=== PATIENT | female | born 1980 | race Asian ===

== ENCOUNTER 2016-12-23 12:27 | Inpatient (IN) | payer OTHER ==
[2016-12-23] MEDS ORDERED: IV START KIT ONE (19:16)
[2016-12-23] MEDS ORDERED: OXYTOCIN 10 UNITS/ML VIAL ONE (19:16)
[2016-12-23] MEDS ORDERED: LACTATED RINGERS 1,000 ML ONE (19:16)
[2016-12-23] MEDS ORDERED: LIDOCAINE Viscous 2% 15 ML UDCUP ONE (19:17)
[2016-12-23] MEDS ORDERED: PUMP TUBING ONE (19:17)
[2016-12-23] MEDS ORDERED: MINERAL OIL 25 ML BOT ONE (19:17)
[2016-12-23] MEDS ORDERED: LIDOCAINE 1% (PRES FREE) 30 ML VIAL ONE (19:17)
[2016-12-23] MEDS ORDERED: OXYTOCIN IN LR 500 ML IV ONE (19:17)
[2016-12-23 19:39] VITALS: BMI 31.4
[2016-12-23] MEDS ORDERED: MISOPROSTOL 25 MCG TABLET ONE (20:24)
[2016-12-23] MEDS: MISOPROSTOL 25 MCG TABLET SL SCH (20:30)
[2016-12-23 20:42] LABS: HEMATOCRIT 35.7 % (37.0-47.0); HEMOGLOBIN 12.4 gm/l (12.0-16.0); MEAN CELL VOLUME 88.1 fl (81.0-99.0); MEAN CORPUSCULAR HEMOGLOBIN 30.6 pg (27.0-31.0); MEAN CORPUSCULAR HGB CONC 34.7 g/dl (33.0-37.0); RED CELL DISTRIBUTION WIDTH 12.6 % (11.5-14.5)
[2016-12-24] MEDS: MISOPROSTOL 25 MCG TABLET SL SCH (00:30)
--- NOTE | 2016-12-24 09:46 | PCMAN ---
OB Admission Note - History : 3 Term: 2 : 0 Abortions (S&E): 0 Livin EDC:: 12/16/16 Gestational Age (weeks): 41 Days (#/7): 0 Admit Cervical Dilation:: 2 Admit Cervical Effacement (%):: 40 Admit Station:: -3 Admit Presentaton:: vertex Membrane Status: Intact Contractions: Yes Contraction Frequency:: 3-10MIN Heart Rate:: 130 (moderate variability/accels present/decels absent) Status:: FHR Cat 1 EFW:: 8# Summary of Course:: Onset of care at 13 weeks x 20 visits. OBIE at 37 weeks from [facility] [place]. complicated by positive Hep B status and stress related to 's diagnosis and treatment for brain cancer. also complicated by iron deficiency anemia and was supplementing. Some gaps in care related to 's illness. Presents to [facility] for IOL due to oligohydraminos at 41w0d. BIBI 5.7 cm on 12/23/16 with reactive NST. SUSU based on sure LMP c/w normal Anatomy U/S. Supported by corporate events director. - Labs Blood Type: A (+) positive Hct/Hgb:: 12.0 Rubella Status: Immune GBS Status: Negative Abnormal Labs: HBsAG Positive, Other - Review of Systems Neg ROS - Physical Exam General: Afebrile, No Acute Distress Psych/Mental Status: Mood/Affect Appropriate, Judgment/Insight Intact Neurological: Grossly Intact, Alert, Oriented x 4 Lungs: Clear to Auscultation Bilaterally Cardiovascular: Regular Rate and Rhythm Genitourinary: Normal Female Genitalia, No Edema Extremities: Full ROM, No Edema - Problems (1) Oligohydramnios Status: Acute Code: O41.00X0 Assessment/Plan: 35 year old at 41w0d IOL for oligohydraminos FHR Cat 1 Cervical ripening; not in labor Hep B pos Family stress; has brain cancer Hx of PP hemorrhage; needs AMTSL Plan: Discussion: Discussed process of IOL. Discussed cervical ripening options including risks and benefits. Patient agrees with misoprostol SL. Meds: 25 mcg misoprostol SL Saline lock Monitoring: continuous Reassess SVE after 2-3 doses of misoprostol or with regular painful contractions. Closely monitor maternal and status.
[2016-12-24] MEDS ORDERED: OXYTOCIN IN LR 500 ML IV PRN ×2 (10:10→15:43)
[2016-12-24] MEDS ORDERED: MISOPROSTOL 25 MCG TABLET SL ONE (10:36)
[2016-12-24] MEDS ORDERED: LACTATED RINGERS 1,000 ML IV ONE (10:39)
--- NOTE | 2016-12-24 13:28 | PDOC36 ---
Provider Note Subject: Labor Progress Note Note: S: Patient resting in bed. Accompanied at bedside by scutcher tender. Ate breakfast and was able to sleep on and off last night. Contractions not painful. O: EFM: 120/moderate variability/accels present/decels absent [employer]: q 4 mins, 60-90 mins, mild to palpation SVE: 2-3/50/-2/LOT VS: BP 111/74, HR 75, T 36.1C [place]: LOT/LOP Note: Patient received two doses of SL misoprostol. Third dose held due to RN concerns about hyperstimulation. Strip reviewed with RN and hyperstim not noted nor were contractions ever noted to be moderate nor painful per patient. A: IOL for oligohydraminos Cervical ripening with misoprostol FHR Cat 1 Hep B pos Plan: Discussed with patient that hyperstim not noted on chart review and due to minimal change with 25 mcg SL, will try 50 mcg SL misoprostol. Discussed alternative of starting pitocin, but explained that cervical ripening was still needed. Patient agrees with trying another dose of misoprostol. Will reevaluate cervix in 4 hours or PRN.
[2016-12-24] MEDS: LACTATED RINGERS 1,000 ML IV SCH ×2 (15:04→21:55)
[2016-12-24] MEDS ORDERED: LACTATED RINGERS 1,000 ML IV SCH (15:45)
[2016-12-24] MEDS ORDERED: OXYTOCIN IN LR 500 ML IV ONE (21:51)
[2016-12-24] MEDS ORDERED: METHYLERGONOVINE MALEATE 0.2 MG/ML 1ML AMP ONE (22:11)
[2016-12-24] MEDS ORDERED: METHYLERGONOVINE MALEATE 0.2 MG/ML 1ML AMP IM ONE (22:15)
[2016-12-24] MEDS ORDERED: LIDOCAINE 1% 2 ML VIAL SUB-Q ONE (22:54)
[2016-12-24] MEDS ORDERED: CALCIUM CARBONATE 500 MG TAB.CHEW PO PRN (23:04)
[2016-12-24] MEDS ORDERED: HYDROCODONE/ACETAMINOPHEN 5/325MG TABLET PO PRN (23:04)
[2016-12-24] MEDS ORDERED: MAGNESIUM HYDROXIDE 30 ML UDCUP PO PRN (23:04)
[2016-12-24] MEDS ORDERED: LACTATED RINGERS 1,000 ML IV PRN (23:04)
[2016-12-24] MEDS ORDERED: LANOLIN 50 APPLIC/7G TUBE TP PRN (23:04)
[2016-12-24] MEDS ORDERED: DOCUSATE SODIUM 100 MG CAPSULE PO PRN (23:04)
[2016-12-24] MEDS ORDERED: BENZOCAINE/MENTHOL 60 APPLIC/BOT TP PRN (23:04)
[2016-12-24] MEDS ORDERED: ACETAMINOPHEN 325 MG TABLET PO PRN (23:04)
[2016-12-25] MEDS: IBUPROFEN 800 MG TABLET PO SCH ×4 (00:04→20:34)
--- NOTE | 2016-12-25 04:58 | PCMDEL ---
Delivery Note - Labor 1st stage (hr/min):: 2h48m 2nd stage (hr/min):: 0h11m 3rd stage (hr/min):: 0h10m Total (hr/min):: 3h9m Pushed (hr/min):: 0h15m - Delivery Delivery (Date): 12/24/16 Delivery (Time): 21:29 Gender: Male Weight: 8 lb 9 oz Length: 1 ft 8.5 in Presentation: Cephalic Position: OA Umbilical Cord: 3 Vessel Delayed Cord Clamping:: > 3 min 1 Minute Total: 9 5 Minute Total: 9 Placenta:: winston, intact, spontaneous, 3vc EBL:: 500ml Perineum:: 2nd perineal laceration Suture:: 3-0 vicryl Anesthesia/Meds:: none Length ROM:: 1 min Comments:: Cervical ripening with miso x 3, low dose pitocin, she then progressed to active labor. Primarily FHT cat. I throughout labor, with occasional Cat. II d/ t occasional decels. She started feeling the urge to push while sitting on then ball and then moved to hands and knees. She pushed effectively to achieve of vigorous male infant. OA to ARNULFO with compound hand, en caul around head, easy delivery of the shoulders and body. Baby initially placed on maternal back to assessment and drying, for spontaneous cry. Apgars 9/9. Mom turned over onto back and baby was placed on maternal abdomen for skin to skin and . AMTSL with IV pitocin. Spontaneous delivery of intact placenta, winston, 3vc, trailing membranes removed with ring forceps. Fundus firm midline at U. 2nd perineal laceration noted and repaired to approximation and hemostasis. Mild continued bleeding noted, fundus firm/midline/at U, lower uterine segment swept for moderate clots and noted atony of lower uterine segment. IM methergine given for good tone of the uterus and decrease in bleeding. Hemostasis achieved, EBL 500ml. Mom and baby stable, baby to breast in 30min.
[2016-12-25 06:41] LABS: HEMATOCRIT 29.9 % (37.0-47.0); HEMOGLOBIN 10.4 gm/l (12.0-16.0)
--- NOTE | 2016-12-25 21:29 | PDOC44 ---
- Subjective Day: 1 (routine) Up ad carlos without issue to void, without issue, pain controlled with PO medication, bleeding decreasing, desires to go home tomorrow. Reports Flatus, Reports Pain Tolerable, Reports , Reports Lochia Light, Reports Tolerating Regular Diet - Objective Temp Pulse Resp BP Pulse Ox 98.2 F 73 14 99/55 12/25/16 20:24 12/25/16 20:24 12/25/16 20:24 12/25/16 20:24 Lab Results 12/25/16 06:15 Hgb 10.4 L D Hct 29.9 L Current Medications Generic Name Dose Route Start Last Admin Trade Name Freq PRN Reason Stop Dose Admin Acetaminophen 325 - 650 mg 12/24/16 23:04 Tylenol PO Q4H PRN Pain (Mild) Acetaminophen/Hydrocodone Bitart 1 - 2 tab 12/24/16 23:04 [place]anna 5/325 PO Q4H PRN Pain (Moderate) Benzocaine/Menthol 1 applic 12/24/16 23:04 12/25/16 00:04 Dermoplast TP 1 bot PRN PRN Administration Patient Comfort Calcium Carbonate/Glycine 500 - 1,000 mg 12/24/16 23:04 Tums PO BID PRN Indigestion Docusate Sodium 100 mg 12/24/16 23:04 Colace PO DAILY PRN Comfort Emollient Ointment 1 applic 12/24/16 23:04 [id number]-N-[id number] TP PRN PRN sore nipples Lactated Ringer's 1,000 mls @ 100 mls/hr 12/24/16 23:04 Lactated Ringers IV .Q10H PRN Titrate per clinical situation Ibuprofen 800 mg 12/24/16 23:04 12/25/16 20:34 Motrin PO 800 mg Q6H ALICJA Administration Magnesium Hydroxide 30 ml 12/24/16 23:04 Milk Of Magnesia PO BEDTIME PRN Constipation Sodium Chloride 10 ml 12/24/16 23:04 Normal Saline 10ml Flush IV PRN PRN IV Flush Sodium Chloride 10 ml 12/25/16 09:00 Normal Saline 10ml Flush IV Q8HR ALICJA - Physical Exam General: Afebrile Psych/Mental Status: Mood/Affect Appropriate, Judgment/Insight Intact, Bonding Well Neurological: Oriented x 4, Normal Gait, Normal Speech Lungs: Clear to Auscultation Bilaterally Cardiovascular: Regular Rate and Rhythm Breast: Soft, Skin intact, Nipples Intact Fundus: Firm, Midline, Below Umbilicus Genitourinary: Normal Female Genitalia - Problems:Assessment/Plan (1) Routine follow-up Status: Acute Assessment/Plan: A: routine recovery Day #1 exclusively up ad carlos P: Encouraged skin to skin and on demand. desires to go home tomorrow. Disposition: Anticipate DC Home Tomorrow
[2016-12-26] MEDS: IBUPROFEN 800 MG TABLET PO SCH ×2 (06:53→09:14)
[2016-12-26 07:27] VITALS: BP 89/53
--- NOTE | 2016-12-26 08:37 | PDOC39B ---
Hospital Course: ADMIT DATE: 12/23/16 DISCHARGE DATE: 12/26/2016 ADMISSION DIAGNOSES: oligohydramnios PROCEDURES:induction of labor repair of 2 perineal lac HISTORY OF PRESENT ILLNESS: 35 year old G3 T2 L2 at 41 weeks 1 days presenting for induction of labor at term for oligohydramnios. Cervical ripening with miso x 3, low dose pitocin, she then progressed to active labor. Primarily FHT cat. I throughout labor, with occasional Cat. II d/ t occasional decels. She pushed effectively to achieve of vigorous male . OA to ARNULFO with compound hand, en caul around head, easy delivery of the shoulders and body. Apgars 9/9. Infant to maternal abdomen for skin to skin and . AMTSL with IV pitocin. Spontaneous delivery of intact placenta, winston, 3vc, Fundus firm midline at U. 2nd perineal laceration noted and repaired to approximation and hemostasis. IM methergine given for lower utierine segment atony effecting hemostasis. EBL 500ml. Mom and baby stable, baby to breast in 30min. HOSPITAL COURSE: The patient is doing well and desires to DC to home today. She is every 2-3 hours. States that has a difficult time getting a deep latch and her nipples are becoming painful. She is using lanolin for comfort and position changes to improve latch. By day of discharge the patient is ambulating, eating, voiding, and passing flatus without difficulty. Pain is controlled with current medications and lochia is appropriate. Laboratory 12/25/16 06:15 - Physical Exam Vital Signs: Temp Pulse Resp BP Pulse Ox 98.6 F 70 14 89/53 12/26/16 07:18 12/26/16 07:18 12/26/16 07:18 12/26/16 07:18 General: Afebrile Psych/Mental Status: Mood/Affect Appropriate, Judgment/Insight Intact, Bonding Well Neurological: Grossly Intact, Alert, Oriented x 4 HEENT: Atraumatic Lungs: Clear to Auscultation Bilaterally, Normal Air Movement Cardiovascular: Regular Rate and Rhythm, Normal S1, Normal S2 Breast: Soft, Skin intact, Nipples Intact, Other (pt repirts painful nipples, but they do not look cracked or blistered a this time) Fundus: Firm, Midline, Below Umbilicus Abdomen: Normal Bowel Sounds Genitourinary: Normal Female Genitalia Lochia: Moderate Rectal Exam: Deferred Extremities: Full ROM, Normal Pulses Wound: Well Approximated - Discharge Diagnosis (1) Routine follow-up Status: Acute Assessment/Plan: A: routine recovery Day #2 exclusively, mild pain and tenderness lochia appropriate Anemia P: Encouraged skin to skin and on demand. DC to home today. Follow up with BABIES clinic or breastfeedign support group in [place] if BF continues to be painful. One more visit wiht before DC to home. RTC in 2 weeks and 6 weeks with the midwives. Offered SW consult in hospital before discharge due to 's illness, but patient declines at this time indicating that the support they got from the last SW meeting is adequate. They will have lots of support at home from friends and family from confucian[place]. Plan to resume condoms for control. Midwifery 'After the ' handout given and discussed with patient. - Discharge Plan Condition: Stable Disposition: Home Instruction Forms: Vaginal Discharge Instructions Prescriptions: FERROUS GLUCONATE (38 Fe) [IRON FERGON 325 MG TABLET (SHF)] 324 mg PO DAILY #30 tab Discharge Medications: Ibuprofen 600-800mg every 8 hours as needed for pain Take the iron supplement that was prescribed once a day in the morning without food or milk. To maintain soft stools, drink 4-5 of the hospital bottles of water each day and you may use a fiber supplement like metamucil once a day. You may take Colace (docusate sodium) 100mg once or twice a day if you become constipated.
[2016-12-28] MEDS ORDERED: IV START KIT ONE (13:31)
== END 2016-12-26 12:08 | disposition home or self-care (01) | DRG 774 ==
LOC: FBC 19:10
PROVIDERS: ADMIT Licensed Practical Nurse; ATTEND Advanced Practice Midwife
PROC: 3E0P7GC Introduction of Other Therapeutic Substance into Female Reproductive, Via Natural or Artificial Opening (ICD-10-PCS; 2016-12-23)
PROC: 3E033VJ Introduction of Other Hormone into Peripheral Vein, Percutaneous Approach (ICD-10-PCS; 2016-12-23)
PROC: 10E0XZZ Delivery of Products of Conception, External Approach (ICD-10-PCS; principal; 2016-12-24)
PROC: 0KQM0ZZ Repair Perineum Muscle, Open Approach (ICD-10-PCS; 2016-12-24)
DX: O41.03X0 Oligohydramnios, third trimester, not applicable or unspecified (principal); O98.42 Viral hepatitis complicating childbirth; B19.10 Unspecified viral hepatitis B without hepatic coma; O48.0 Post-term pregnancy; Z3A.41 41 weeks gestation of pregnancy; Z37.0 Single live birth; O70.1 Second degree perineal laceration during delivery